=== PATIENT | female | born 1955 | race Two or more races ===

== ENCOUNTER 2024-07-31 16:06 | Emergency (ER) | payer BC, OTHER ==
[~2024-07-31] VITALS: Ht 162.6 cm; Wt 70.5 kg
[2024-07-31 17:16] LABS: Urine Bacteria MANY /hpf (None Seen); Urine Blood Negative /uL (Negative); Urine Clarity Clear (Clear); Urine Color Light-Yellow (Yellow); Urine Mucus FEW (None Seen); Urine Protein, UAD 1+ (Negative); Urine Specific Gravity 1.027 (1.001-1.035); Urine Squamous Epithelial Cell FEW /hpf (<5); Urine Urobilinogen Normal (Negative); Urine WBC 9 /HPF (0-5); Urine pH 5.5 (5.0-9.0)
--- NOTE | 2024-07-31 18:04 | ED.PDOC ---
GI ASSESSMENT HPI Comments 69 YEAR OLD FEMALE PRESENTS TO THE ED WITH A CHIEF COMPLAINT OF EPIGASTRIC PAIN ONSET LAST NIGHT (07/30/2024). PATIENT STATES SHE BEGAN EXPERIENCING EPIGASTRIC PAIN LAST NIGHT THAT WORSEN THIS MORNING WELL NAUSEA/VOMITING, CHILLS, FEVERS. PATIENT WAS DIAGNOSED WITH INTERNAL SHINGLES 5 MONTHS AGO, HAS CHRONIC DIFFUSED ABDOMINAL PAIN. PMHX GERD, INTERNAL SHINGLES. DENIES HEADACHE, CHEST PAIN, SHORTNESS OF BREATH, BLURRY VISION, DIARRHEA, CONSTIPATION. NO OTHER SYMPTOMS OR MODIFYING FACTORS PRESENT AT THIS TIME. Chief Complaint: Nausea/Vomiting Time Seen by MD: 17:51 Primary Care Provider: LUTHER Pope Notes: Medications, Allergies Allergies: Coded Allergies: NO KNOWN ALLERGIES (Unverified , 07/31/24) Information Source: Patient Mode of Arrival: Ambulatory Timing: Hours Duration: Since onset Prehospital treatment: None Quality: Aching, Burning Severity: Moderate Recent: None Recent Hx of: None Pain Location: Epigastric Modifying Factors: Nothing Associated sign and symptoms: Nausea, Vomiting, Abdominal Pain, Fever Past Medical History PAST MEDICAL HISTORY: GERD Past Medical History (Other): Internal shingles Surgical History: Appendectomy, Cholecystectomy, ASSIGNMENT DESK ASSISTANT History: No Pertinent ASSIGNMENT DESK ASSISTANT History Family History Family History: Reviewed,noncontributory to illness, No family hx of Cancer, No family hx of DM, No family hx of Heart crissy, No family hx of HTN, No family hx ofKidney crissy, No family hx of Liver crissy, No family hx of Lung crissy, No family hx of Stroke Social History Smoker: Non-Smoker Alcohol: Denies ETOH Use Drugs: Denies Drug Use Lives In: Home Constitutional: reports: chills, fever; denies: diaphoresis, fatigue, malaise, sweats, weakness, others EENTM: denies: blurred vision, double vision, ear bleeding, ear discharge, ear drainage, ear pain, ear ringing, eye pain, eye redness, hearing loss, mouth pain, mouth swelling, nasal discharge, nose bleeding, nose congestion, nose pain, photophobia, tearing, throat pain, throat swelling, voice changes, others Respiratory: denies: cough, hemoptysis, orthopnea, SOB at rest, shortness of breath, SOB with excertion, stridor, wheezing, others Cardiovascular: denies: chest pain, dizzy spells, diaphoresis, Dyspnea on exertion, edema, irregular heart beat, left arm pain, lightheadedness, palpitat ions, PND, syncope, others Gastrointestinal: reports: abdominal pain, nausea, vomiting; denies: abdomen distended, blood streaked bowels, constipated, diarrhea, dysphagia, difficulty swallowing, hematemesis, melena, poor appetite, poor fluid intake, rectal bleeding, rectal pain, others Genitourinary: denies: abnormal vagina bleeding, burning, dyspareunia, dysuria, flank pain, frequency, hematuria, incontinence, pain, , vagina discharge, urgency, others Neurological: denies: dizziness, fainting, headache, left sided numbness, left sided weakness, numbness, paresthesia, pre-existing deficit, right sided numbness, right sided weakness, seizure, speech problems, tingling, tremors, weakness, others Musculoskeletal: denies: back pain, gout, joint pain, joint swelling, muscle pain, muscle stiffness, neck pain, others Integumetry: denies: bruises, change in color, change in hair/nails, dryness, laceration, lesions, lumps, rash, wounds, others Allergic/Immunocompromised: denies: Difficulty Healing, Frequent Infections, Hives, Itching, others Hematologic/Lymphatic: denies: anemia, blood clots, easy bleeding, easy bruising, swollen glands, others Endocrine: denies: excessive hunger, excessive sweating, excessive thirst, excessive urination, flushing, intolerance to cold, intolerance to heat, unexplained weight gain, unexplained weight loss, others Psychiatric: denies: anxiety, bipolar disorder, depression, hopeless, panic disorder, schizophrenia, sleepless, suicidal, others All Other Systems: Reviewed and Negative Physical Exam General Appearance: No Apparent Distress, Normal HEENT: Normal ENT Inspection, Pharynx Normal, TMs Normal Neck: Full Range of Motion, Non-Tender, Normal, Normal Inspection Respiratory: Chest Non-Tender, Lungs Clear, No Accessory Muscle Use, No Respiratory Distress, Normal Breath Sounds Cardiovascular: No Edema, No JVD, No Murmur, No Gallop, Normal Peripheral Pulses, Regular Rate/Rhythm Breast Exam: Deferred Gastrointestinal: Diffuse (TENDERNESS), No Organomegaly, No Pulsatile Mass, Normal Bowel Sounds, Tenderness (DIFFUSED ABDOMINAL ) Genitalia: Deferred Pelvic: Deferred Rectal: Deferred Extremities: No calf tenderness, Normal capillary refill, Normal inspection, Normal range of motion, Non-tender, No pedal edema Musculoskeletal : Apperance: Normal Neurologic: Alert, slab inspector II-XII nml as Tested, No Motor Deficits, Normal Affect, Normal Mood, No Sensory Deficits Cerebellar Function: Normal Reflexes: Normal Skin: Dry, Normal Color, Warm Lymphatic: No Adenopathy Was a procedure done? Was a procedure done?: No GI differential Dx Differential Diagnosis: Constipation, Diverticular disease, Gastroenteritis, Urinary Obstruction, UTI X-Ray, Labs, Meds, VS Vital Signs Date Time Temp Pulse Resp B/P (MAP) Pulse Ox O2 Delivery O2 Flow Rate FiO2 07/31/24 16:45 100.0 111 16 119/75 (90) 100 Lab Test 07/31/24 17:00 Range/Units Urine Color Light-yellow Yellow Urine Clarity Clear Clear Urine pH 5.5 5.0-9.0 Urine Specific [place] 1.027 1.001-1.035 Urine Protein 1+ H Negative Urine Ketones Trace Negative Urine Blood Negative Negative /uL Urine Nitrite 2+ H Negative Urine Bilirubin Negative Negative Urine Urobilinogen Normal Negative mg/dL Urine Leukocyte Esterase Negative Negative /uL Urine RBC 1 0 - 4 /hpf Urine Microscopic WBC 9 H 0-5 /HPF Urine Squamous Epithelial Cells Few <5 /hpf Urine Bacteria Many H None Seen /hpf Urine Mucus Few None Seen Urine Glucose 4+ H Normal mg/dL X-Ray, Labs, Meds, VS Comment IMAGING: X-RAYS AND CT SCANS WERE REVIEWED AND INTERPRETED BY THIS PROVIDER, IMAGING SHOWS NO FRACTURES AND NO PATHOLOGICAL DISEASE. PENDING RADIOLOGY REVIEW. LABORATORY: LABS REVIEWED AND INTERPRETED BY THIS PROVIDER. URINALYSIS SHOWS POSITIVE NITRITES PATIENT HAS PRIOR MEDICAL VISITS REVIEWED. MED RECONCILIATION PERFORMED VITAL SIGNS REVIEWED Time of 1ST Reevaluation: 18:21 Reevaluation 1ST: Unchanged Patient Education/Counseling: Diagnosis, Treatment, Prognosis, Need For Follow Up (PATIENT ADVISED TO FOLLOW-UP IN THE EMERGENCY ROOM IN THE NEXT 24 TO 48 HOURS IF SYMPTOMS DO NOT IMPROVE. ADVISED FOLLOW-UP WITH PCP IN THE NEXT 3 TO 5 DAYS. PATIENT VERBALIZED UNDERSTANDING. ) Family Education/Counseling: No Family Present Departure 1 Departure Time of Disposition: 18:11 Impression: Primary Impression: Urinary tract infection Qualified Codes: N30.01 - Acute cystitis with hematuria Disposition: HOME / SELF CARE / HOMELESS Condition: Fair e-Prescriptions Ondansetron HCl (Ondansetron) 4 Mg Tab 4 MG PO TID PRN, #15 TAB Prov: PEE RIVER 07/31/24 Nitrofurantoin Monohydrate Mac (Macrobid) 100 Mg Cap 100 MG PO BID for 7 Days, #14 CAP Prov: PEE RIVER 07/31/24 Discharged With: Self Critical Care Note Critical Care Time?: No Stability Stability form required: No Heart Score Heart Score: Heart Score Response (Comments) Value History N/A 0 EKG N/A 0 Age N/A 0 Risk Factors N/A 0 Troponin N/A 0 Total 0 I personally scribed for PEE RIVER ([email or web address]) on 07/31/24 at 18:04. Electronically submitted by Gloria Murguia ([email or web address]). PEE RIVER Jul 31, 2024 18:04
[2024-07-31] MEDS ORDERED: ONDA-155 PO (18:12)
[2024-07-31] MEDS ORDERED: NITR-87 PO (18:12)
[2024-07-31 18:20] VITALS: BP 115/60; PULSE 114; RESP 18; TEMP 98; O2SAT 97
== END 2024-07-31 18:22 | disposition home or self-care (01) ==
LOC: ER 16:06
DX: N39.0 Urinary tract infection, site not specified (principal); K21.9 Gastro-esophageal reflux disease without esophagitis; Z90.49 Acquired absence of other specified parts of digestive tract; Z98.890 Other specified postprocedural states
CPT/HCPCS: 81001

== ENCOUNTER 2025-05-08 09:17 | Inpatient (IN) | payer BC, OTHER ==
[~2025-05-08] VITALS: Ht 165.1 cm; Wt 79.0 kg
[~2025-05-08 09:17] MED LIST: NITR-87 PO; ONDA-155 PO
--- NOTE | 2025-05-08 09:41 | ECG ---
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
[2025-05-08 11:32] LABS: Alanine Aminotransferase 20 U/L (7-40); Anion Gap 10 (5-15); BUN/Creatinine Ratio 18.5 (10.0-20.0); Blood Urea Nitrogen 15 mg/dL (9-23); Calcium 9.1 mg/dL (8.7-10.4); Carbon Dioxide 25 mmol/L (20-31); Chloride 106 mmol/L (98-107); Hematocrit 27.6 % (36.0-46.0); Hemoglobin 8.2 g/dL (12.2-16.2); Mean Corpuscular Hemoglobin 19.0 pg (28.0-32.0); Mean Corpuscular Volume 63.7 fL (80.0-100.0); Nucleated Red Blood Cells % 0.2 %; Potassium 3.7 mmol/L (3.5-5.1); Sodium 141 mmol/L (136-145); Total Protein 7.5 g/dL (5.7-8.2)
[2025-05-08 11:33] LABS: Albumin 4.1 g/dL (3.2-4.8); Bilirubin, Direct 0.2 mg/dL (<0.3); Bilirubin, Total 0.7 mg/dL (0.2-1.0)
[2025-05-08 11:35] LABS: Alkaline Phosphatase 156 U/L (46-116); Glucose 164 mg/dL (74-106)
--- NOTE | 2025-05-08 11:53 | DVH ---
CLINICAL HISTORY: abd distension TECHNIQUE: CT of the abdomen and pelvis was performed without IV contrast. This exam was performed according to our departmental dose optimization program. Up-to-date CT equipment and radiation dose reduction techniques are utilized as appropriate. CTDI 15 DLP 802 COMPARISON: None FINDINGS: Abdomen/Pelvis: The adrenal glands, kidneys, pancreas, bladder, and uterus are unremarkable. The liver has a cirrhotic morphology with nodular contour. The spleen is moderately enlarged, measuring 15.7 cm in long axis. The gallbladder is absent. The abdominal aorta is normal in course and caliber. There are mild aortic atherosclerotic calcifications. There is no free intraperitoneal air. Is small amount of free fluid in the peritoneal cavity. There is no enlarged abdominal pelvic lymph node. There is no small bowel wall thickening or dilatation. There is moderate ascending colon wall thickening. Other: The imaged lower thorax demonstrates aortic valvular calcifications. There is minimal interstitial lung edema in both lung bases. No acute osseous abnormality is evident. IMPRESSION: Cirrhosis with moderate splenomegaly and small amount of ascites. Moderate ascending colon wall thickening, favor portal colopathy. Aortic valvular calcifications. Mild interstitial lung edema.
[2025-05-08 12:21] LABS: Anisocytosis Slight
[2025-05-08 12:22] LABS: Ovalocytes FEW
[2025-05-08 12:42] LABS: Urine Protein, UAD 1+ (Negative)
--- NOTE | 2025-05-08 13:43 | ED.PDOC ---
GI ASSESSMENT HPI Comments 69 y/o F, with PMHx of HTN, DM, and GERD presents to the ED for CC of abdominal pain. Patient states, she has been experiencing diffuse abdominal pain with associated abdominal distension and nausea [id number]. Upon arrival to the ED, patient is hypertensive with a blood pressure of 192/108mmHg; endorses taking prescribed Lisinopril x30min CLOTH OPENER HAND. Patient denies vomiting, constipation, diarrhea, melena, or fever. No other symptoms or modifying factors are present at this time. Chief Complaint: Abdominal Pain Time Seen by MD: 10:00 Primary Care Provider: LUTHER Reviewed Notes: Nurses Notes, Medications, Allergies Allergies: Coded Allergies: Nitrofurantoin (Verified Allergy, Severe, 05/08/25) n/v and sob Home Meds Active Scripts Ondansetron HCl (Ondansetron) 4 Mg Tab, 4 MG PO TID PRN, #15 TAB Prov:PEE FRIAS DIAMOND EXPERT 07/31/24 Nitrofurantoin Monohydrate Mac (Macrobid) 100 Mg Cap, 100 MG PO BID for 7 Days, #14 CAP Prov:PEE FRIAS DIAMOND EXPERT 07/31/24 Information Source: Patient Mode of Arrival: Ambulatory Timing: Weeks Duration: Since onset Prehospital treatment: None Severity: Moderate Recent: None Recent Hx of: None Pain Location: Diffuse Modifying Factors: Nothing Associated sign and symptoms: Nausea, Abdominal Pain Past Medical History PAST MEDICAL HISTORY: DM, GERD, HTN Surgical History: Appendectomy, Cholecystectomy, CIRCULATION CLERK History: No Pertinent CIRCULATION CLERK History Family History Family History: Reviewed,noncontributory to illness, No family hx of Cancer, No family hx of DM, No family hx of Heart crissy, No family hx of HTN, No family hx ofKidney crissy, No family hx of Liver crissy, No family hx of Lung crissy, No family hx of Stroke Social History Smoker: Non-Smoker Alcohol: Denies ETOH Use Drugs: Denies Drug Use Lives In: Home Constitutional: denies: chills, diaphoresis, fatigue, fever, malaise, sweats, weakness, others EENTM: denies: blurred vision, double vision, ear bleeding, ear discharge, ear drainage, ear pain, ear ringing, eye pain, eye redness, hearing loss, mouth pain, mouth swelling, nasal discharge, nose bleeding, nose congestion, nose pain, photophobia, tearing, throat pain, throat swelling, voice changes, others Respiratory: denies: cough, hemoptysis, orthopnea, SOB at rest, shortness of breath, SOB with excertion, stridor, wheezing, others Cardiovascular: denies: chest pain, dizzy spells, diaphoresis, Dyspnea on exertion, edema, irregular heart beat, left arm pain, lightheadedness, palpitations, PND, syncope, others Gastrointestinal: reports: abdomen distended, abdominal pain, nausea; denies: blood streaked bowels, constipated, diarrhea, dysphagia, difficulty swallowing, hematemesis, melena, poor appetite, poor fluid intake, rectal bleeding, rectal pain, vomiting, others Genitourinary: denies: abnormal vagina bleeding, burning, dyspareunia, dysuria, flank pain, frequency, hematuria, incontinence, pain, , vagina discharge, urgency, others Neurological: denies: dizziness, fainting, headache, left sided numbness, left sided weakness, numbness, paresthesia, pre-existing deficit, right sided numbness, right sided weakness, seizure, speech problems, tingling, tremors, weakness, others Musculoskeletal: denies: back pain, gout, joint pain, joint swelling, muscle pain, muscle stiffness, neck pain, others Integumetry: denies: bruises, change in color, change in hair/nails, dryness, laceration, lesions, lumps, rash, wounds, others Allergic/Immunocompromised: denies: Difficulty Healing, Frequent Infections, Hives, Itching, others Hematologic/Lymphatic: denies: anemia, blood clots, easy bleeding, easy bruising, swollen glands, others Endocrine: denies: excessive hunger, excessive sweating, excessive thirst, excessive urination, flushing, intolerance to cold, intolerance to heat, unexp lained weight gain, unexplained weight loss, others Psychiatric: denies: anxiety, bipolar disorder, depression, hopeless, panic disorder, schizophrenia, sleepless, suicidal, others All Other Systems: Reviewed and Negative Physical Exam General Appearance: No Apparent Distress, Normal HEENT: Normal ENT Inspection, Pharynx Normal, TMs Normal Neck: Full Range of Motion, Non-Tender, Normal, Normal Inspection Respiratory: Chest Non-Tender, Lungs Clear, No Accessory Muscle Use, No Respiratory Distress, Normal Breath Sounds Cardiovascular: No Edema, No JVD, No Murmur, No Gallop, Normal Peripheral Pulse s, Regular Rate/Rhythm Breast Exam: Deferred Gastrointestinal: No Organomegaly, No Pulsatile Mass, Normal Bowel Sounds, Soft, Other (Abdominal distention with diffuse abdominal tenderness to palpation) Genitalia: Deferred Pelvic: Deferred Rectal: Deferred Extremities: No calf tenderness, Normal capillary refill, Normal inspection, Normal range of motion, Non-tender, No pedal edema Musculoskeletal : Apperance: Normal Neurologic: Alert, 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 Was a procedure done?: No GI differential Dx Differential Diagnosis: Diverticular disease, Gastritis/PUD, Gastroenteritis, Inflammatory BD, Bacterial, Viral X-Ray, Labs, Meds, VS Vital Signs Date Time Temp Pulse Resp B/P (MAP) Pulse Ox O2 Delivery O2 Flow Rate FiO2 05/08/25 12:29 97.7 84 16 159/89 (112) 98 97.7 05/08/25 10:07 98.2 82 16 185/106 (132) 98 98.2 05/08/25 09:27 84 05/08/25 09:18 97.6 86 18 192/108 95 97.6 Lab Test 05/08/25 11:55 05/08/25 11:15 05/08/25 11:06 05/08/25 09:31 Range/Units Troponin I High Sensitivity 14 11 </=34 ng/L Anti-Nuclear Antibody Screen Pending Urine Color Colorless Yellow Urine Clarity Clear Clear Urine pH 6.0 5.0-9.0 Urine Specific [place] 1.012 1.001-1.035 Urine Protein 1+ H Negative Urine Ketones Negative Negative Urine Blood Trace H Negative /uL Urine Nitrite Negative Negative Urine Bilirubin Negative Negative Urine Urobilinogen Normal Negative mg/dL Urine Leukocyte Esterase Negative Negative /uL Urine RBC 2 0 - 4 /hpf Urine Microscopic WBC < 1 0-5 /HPF Urine Squamous Epithelial Cells Few <5 /hpf Urine Bacteria Few H None Seen /hpf Urine Glucose 4+ H Normal mg/dL White Blood Count 3.4 L 4.4-10.8 10^3/uL Red Blood Count 4.34 4.0-5.20 10^6/uL Hemoglobin 8.2 L 12.2-16.2 g/dL Hematocrit 27.6 L 36.0-46.0 % Mean Corpuscular Volume 63.7 L 80.0-100.0 fL Mean Corpuscular Hemoglobin 19.0 L 28.0-32.0 pg Mean Corpuscular Hemoglobin Concent 29.7 L 32.0-36.0 g/dL Red Cell Distribution Width 20.4 H 11.8-14.3 % Platelet Count 127 L 140-450 10^3/uL Mean Platelet Volume 8.1 6.9-10.8 fL Neutrophils (%) (Auto) 75.4 37.0-80.0 % Lymphocytes (%) (Auto) 15.5 10.0-50.0 % Monocytes (%) (Auto) 6.4 0.0-12.0 % Eosinophils (%) (Auto) 1.6 0.0-7.0 % Basophils (%) (Auto) 1.1 0.0-2.0 % Neutrophils # (Auto) 2.6 1.6-8.6 10 ^3/uL Lymphocytes # (Auto) 0.5 0.4-5.4 10 ^3/uL Monocytes # (Auto) 0.2 0-1.3 10 ^3/uL Eosinophils # (Auto) 0.1 0-0.8 10 ^3/uL Basophils # (Auto) 0 0-0.2 10 ^3/uL Nucleated Red Blood Cells 0.2 % Platelet Estimate Decreased Hypochromasia (manual) Moderate Anisocytosis (manual) Slight Microcytosis Moderate Ovalocytes Few Sodium Level 141 136-145 mmol/L Potassium Level 3.7 3.5-5.1 mmol/L Chloride Level 106 98-107 mmol/L Carbon Dioxide Level 25 20-31 mmol/L Anion Gap 10 5-15 Blood Urea Nitrogen 15 9-23 mg/dL Creatinine 0.81 0.550-1.02 mg/dL Glomerular Filtration Rate Calc 79 >90 mL/min BUN/Creatinine Ratio 18.5 10.0-20.0 Serum Glucose 164 H 74-106 mg/dL Calcium Level 9.1 8.7-10.4 mg/dL Iron Level 21 L 50-170 ug/dL Total Iron Binding Capacity 379 250-425 ug/dL Percent Iron Saturation 5.5 L 15-50 % Ferritin 6.8 L 10-291 ng/mL Total Bilirubin 0.7 0.2-1.0 mg/dL Direct Bilirubin 0.2 <0.3 mg/dL Aspartate Amino Transferase (AST) 30 13-40 U/L Alanine Aminotransferase (ALT) 20 7-40 U/L Alkaline Phosphatase 156 H 46-116 U/L B-Type Natriuretic Peptide 232.07 0-100 pg/mL Total Protein 7.5 5.7-8.2 g/dL Albumin 4.1 3.2-4.8 g/dL Lipase 65 H 12-53 U/L Hepatitis A Antibody Total Pending Hepatitis B Surface Antigen Pending Hepatitis B Surface Antibody Pending Hepatitis B Core Total Antibody Pending Hepatitis C Antibody Pending POC Glucose 194 H 70-106 mg/dl X-Ray, Labs, Meds, VS Comment 69-year-old female with a extensive medical history notably history of cirrhosis here today with diffuse abdominal pain. Vital signs stable, afebrile. Lab work overall reassuring without evidence of significant acute abnormalities. CT scan of the abdomen without evidence of emergent surgical pathology. Plan made to admit the patient for further evaluation of her abdominal pain and diuresis. Images Reviewed?: Images reviewed and evaluated by me Time of 1ST Reevaluation: 10:30 Reevaluation 1ST: Unchanged Patient Education/Counseling: Diagnosis, Treatment Family Education/Counseling: No Family Present SEPSIS Sepsis Screen Date sepsis recognized/suspect: May 08, 2025 Time Sepsis recognized/suspect: 919 Recent Procedure: No On Antibiotic Therapy: No Respiratory Rate >20: No Heart Rate >90: No Temp<36 C (96.8 F) or >38.3 C: No SBP <90 or MAP <65 mmHG: No New Acute Mental Status Change: No Is the patient on CPAP, BIPAP,: No Physician Orders Ct Ab Pel Wo Con-No Oral Or Iv (05/08/25 10:58) Vital Signs Date Time Temp Pulse Resp B/P (MAP) Pulse Ox O2 Delivery O2 Flow Rate FiO2 05/08/25 12:29 97.7 84 16 159/89 (112) 98 97.7 05/08/25 10:07 98.2 82 16 185/106 (132) 98 98.2 05/08/25 09:27 84 05/08/25 09:18 97.6 86 18 192/108 95 97.6 Laboratory Tests Test 05/08/25 11:06 White Blood Count 3.4 10^3/uL (4.4-10.8) L Departure 1 Departure Time of Disposition: 19:34 Impression: Primary Impression: Abdominal pain Additional Impressions: History of cirrhosis Volume overload Ascites Disposition: ADMITTED INPATIENT Admit to: Tele Condition: Guarded Critical Care Note Critical Care Time?: Yes (30 min-critical care time only) Stability Stability form required: No Heart Score Heart Score: Heart Score Response (Comments) Value History N/A 0 EKG N/A 0 Age N/A 0 Risk Factors N/A 0 Troponin N/A 0 Total 0 I personally scribed for VINAY CERDA MD ([email or web address]) on 05/08/25 at 13:43. Electronically submitted by Gilda Caceres ([email or web address]). I personally scribed for VINAY CERDA MD ([email or web address]) on 05/08/25 at 13:45. El ectronically submitted by Gilda Caceres ([email or web address]). I personally scribed for VINAY CERDA MD ([email or web address]) on 05/08/25 at 13:48. Elec tronically submitted by Gilda Caceres ([email or web address]). VINAY CERDA MD May 08, 2025 13:43
[2025-05-08] MEDS ORDERED: DEXTROSE (50%) 50ML SYRG IV PRN (13:45)
[2025-05-08] MEDS ORDERED: ACETAMINOPHEN 325 MG TAB PO PRN (13:45)
--- NOTE | 2025-05-08 13:51 | DVHHP2 ---
History of Present Illness History of Present Illness This is a 69-year-old female with a past medical history of diabetes, HERRON, gastritis, sinusitis, hypertension, and a prior episode of shingles who presents with two weeks of generalized abdominal pain that begins in the lower abdomen and then spreads diffusely. The pain improves after defecation, and she reports constipation with only a small bowel movement today. She mentions subjective fever without documented temperature and a mouth sore. She lives in [facility] and is currently visiting her son. On arrival, blood pressure was 192/108, now improved to 159/89. No fevers, heart rate stable. Exam shows a distended and tender abdomen, especially in the lower region. Normal EKG PMHx Diabetes, HERRON, gastritis, sinusitis, hypertension, prior shingles. PSHx Cholecystectomy, appendectomy, . Social History Lives in [facility], here visiting her son, drinks socially, no smoking or drug use reported. ROS Positive for abdominal pain, constipation, subjective fever, and oral sore. All other systems reviewed and negative. Review of Systems Allergies: Coded Allergies: Nitrofurantoin (Verified Allergy, Severe, 05/08/25) n/v and sob Medications Current Medications Medications Dose Ordered Sig/Jeffrey Route Start Time Stop Time Status Last Admin Dose Admin Furosemide 40 mg BIDD IV 05/08/25 18:00 UNV Spironolactone 100 mg DAILY PO 05/08/25 13:45 UNV Lisinopril 10 mg DAILY PO 05/09/25 10:00 UNV Diagnostic Test (Pha) 1 strip ACHS 05/08/25 17:00 UNV Insulin Human Regular ACHS SC 05/08/25 17:00 UNV Dextrose 50 ml UD PRN IV 05/08/25 13:45 UNV Acetaminophen 325 mg Q4HP PRN PO 05/08/25 13:45 UNV Exam Vital Signs Vital Signs Date Time Temp Pulse Resp B/P (MAP) Pulse Ox O2 Delivery O2 Flow Rate FiO2 05/08/25 12:29 97.7 84 16 159/89 (112) 98 97.7 Exam No acute distress, cardiopulmonary exam normal without crackles, wheezes, or murmurs. Abdomen distended and very tender in the lower quadrants, no fluid wave. No jaundice. Mild edema +1 in the extremities. Neurologically alert and oriented, no asterixis. Labs/Xrays Labs Test 05/08/25 11:55 05/08/25 11:15 05/08/25 11:06 05/08/25 09:31 Range/Units Troponin I High Sensitivity 14 </=34 ng/L Urine Color Colorless Yellow Urine Clarity Clear Clear Urine pH 6.0 5.0-9.0 Urine Specific [place] 1.012 1.001-1.035 Urine Protein 1+ H Negative Urine Ketones Negative Negative Urine Blood Trace H Negative /uL Urine Nitrite Negative Negative Urine Bilirubin Negative Negative Urine Urobilinogen Normal Negative mg/dL Urine Leukocyte Esterase Negative Negative /uL Urine RBC 2 0 - 4 /hpf Urine Microscopic WBC < 1 0-5 /HPF Urine Squamous Epithelial Cells Few <5 /hpf Urine Bacteria Few H None Seen /hpf Urine Glucose 4+ H Normal mg/dL White Blood Count 3.4 L 4.4-10.8 10^3/uL Red Blood Count 4.34 4.0-5.20 10^6/uL Hemoglobin 8.2 L 12.2-16.2 g/dL Hematocrit 27.6 L 36.0-46.0 % Mean Corpuscular Volume 63.7 L 80.0-100.0 fL Mean Corpuscular Hemoglobin 19.0 L 28.0-32.0 pg Mean Corpuscular Hemoglobin Concent 29.7 L 32.0-36.0 g/dL Red Cell Distribution Width 20.4 H 11.8-14.3 % Platelet Count 127 L 140-450 10^3/uL Mean Platelet Volume 8.1 6.9-10.8 fL Neutrophils (%) (Auto) 75.4 37.0-80.0 % Lymphocytes (%) (Auto) 15.5 10.0-50.0 % Monocytes (%) (Auto) 6.4 0.0-12.0 % Eosinophils (%) (Auto) 1.6 0.0-7.0 % Basophils (%) (Auto) 1.1 0.0-2.0 % Neutrophils # (Auto) 2.6 1.6-8.6 10 ^3/uL Lymphocytes # (Auto) 0.5 0.4-5.4 10 ^3/uL Monocytes # (Auto) 0.2 0-1.3 10 ^3/uL Eosinophils # (Auto) 0.1 0-0.8 10 ^3/uL Basophils # (Auto) 0 0-0.2 10 ^3/uL Nucleated Red Blood Cells 0.2 % Platelet Estimate Decreased Hypochromasia (manual) Moderate Anisocytosis (manual) Slight Microcytosis Moderate Ovalocytes Few Sodium Level 141 136-145 mmol/L Potassium Level 3.7 3.5-5.1 mmol/L Chloride Level 106 98-107 mmol/L Carbon Dioxide Level 25 20-31 mmol/L Anion Gap 10 5-15 Blood Urea Nitrogen 15 9-23 mg/dL Creatinine 0.81 0.550-1.02 mg/dL Glomerular Filtration Rate Calc 79 >90 mL/min BUN/Creatinine Ratio 18.5 10.0-20.0 Serum Glucose 164 H 74-106 mg/dL Calcium Level 9.1 8.7-10.4 mg/dL Total Bilirubin 0.7 0.2-1.0 mg/dL Direct Bilirubin 0.2 <0.3 mg/dL Aspartate Amino Transferase (AST) 30 13-40 U/L Alanine Aminotransferase (ALT) 20 7-40 U/L Alkaline Phosphatase 156 H 46-116 U/L B-Type Natriuretic Peptide 232.07 0-100 pg/mL Total Protein 7.5 5.7-8.2 g/dL Albumin 4.1 3.2-4.8 g/dL Lipase 65 H 12-53 U/L POC Glucose 194 H 70-106 mg/dl SEPSIS Sepsis Screen Date sepsis recognized/suspect: May 08, 2025 Time Sepsis recognized/suspect: 919 Recent Procedure: No On Antibiotic Therapy: No Respiratory Rate >20: No Heart Rate >90: No Temp<36 C (96.8 F) or >38.3 C: No SBP <90 or MAP <65 mmHG: No New Acute Mental Status Change: No Is the patient on CPAP, BIPAP,: No Physician Orders Ct Ab Pel Wo Con-No Oral Or Iv (05/08/25 10:58) Troponin-I Hs (05/08/25 13:58) Admit (05/08/25 13:43) Code Status (05/08/25 13:43) Vital Signs .PER UNIT PROTOCOL (05/08/25 13:43) Review Orders With Adm. (05/08/25 13:43) Consistent Carb([facility] [place])Diabetes (05/08/25 Dinner) Notify Md Of Changes From Base (05/08/25 13:43) Advance Directive (05/08/25 13:43) Echo 2d Mode Cardiac Dop (05/08/25 13:43) Patient Condition (05/08/25 13:43) Allergies (05/08/25 13:43) Oxygen By Nasal Cannula (05/08/25 13:43) Stat Ekg For Chest Pain (05/08/25 13:43) Notify Md Of Changes From Base (05/08/25 13:43) Plant Cytologist For 24 Hours (05/08/25 13:43) Emergency Dysrhythmia Protocol (05/08/25 13:43) Rhythm Strips Once Every Shift (05/08/25 13:43) Furosemide Injection (Lasix Injection) (05/08/25 18:00) Spironolactone (Aldactone) (05/08/25 13:45) Lisinopril Tablet (Zestril Tablet) (05/09/25 10:00) Glucose Blood (Accu-Chek Comfort Curve T (05/08/25 17:00) Insulin R (Human) (Insulin R) (05/08/25 17:00) Dextrose 50% Syringe (05/08/25 13:45) Acetaminophen Tablet (Tylenol Tablet) (05/08/25 13:45) Vital Signs Date Time Temp Pulse Resp B/P (MAP) Pulse Ox O2 Delivery O2 Flow Rate FiO2 05/08/25 12:29 97.7 84 16 159/89 (112) 98 97.7 05/08/25 10:07 98.2 82 16 185/106 (132) 98 98.2 05/08/25 09:27 84 05/08/25 09:18 97.6 86 18 192/108 95 97.6 Laboratory Tests Test 05/08/25 11:06 White Blood Count 3.4 10^3/uL (4.4-10.8) L Assessment/Plan Assessment/Plan # Acute intractable abdominal pain secondary to cirrhosis Pain likely reflects worsening portal hypertension and abdominal wall tension from mild ascites in the setting of known cirrhosis. Will manage with diuretics, monitor abdominal exam, and trend CMP; no indication for paracentesis at this time given minimal fluid. # HERRON cirrhosis Imaging confirms cirrhosis, splenomegaly, and mild ascites consistent with chronic portal hypertension. start spironolactone and furosemide, monitor i ntake/output, daily weights, per hospital course, consider GI consult # Ascites Mild ascites noted on CT; patient stable without peritonitis signs. Will initiate diuretics (furosemide and spironolactone) and low-sodium diet; reassess fluid volume and consider paracentesis only if symptoms worsen or fluid increases. # Microcytic anemia Hemoglobin 8.2 with microcytosis is concerning for iron deficiency in the setting of chronic liver disease and possible malabsorption. Order iron studies and ferritin; consider IV iron depending on results and clinical course. #Hypersplenism #Thrombocytopenia Due to cirrhosis # Type 2 diabetes mellitus Glycemic control needs maintenance during hospitalization. Use insulin sliding scale and hold oral agents for now. # Hypertension Initial severe elevation improved; likely multifactorial including pain and volume status. Resume nadolol at low dose and monitor blood pressure closely. # Gastritis history Protonix IV Case discussed with Dr Reeder Full code Plan discussed with: Patient, Other (rn) My Orders Orders - HOLLIS KINSEY Procedure Category Date Status Time Admit ADMIT 05/08/25 Transmitted 13:43 Code Status CODE 05/08/25 Transmitted 13:43 Vital Signs [facility] 05/08/25 In Process 13:43 Review Orders With [facility] 05/08/25 In Process Adm. 13:43 Consistent DIET 05/08/25 Transmitted Carb(Ccho)Diabetes Dinner Notify Of Changes [facility] 05/08/25 In Process From Base 13:43 Advance Directive [facility] 05/08/25 In Process 13:43 Echo 2d Mode Cardiac US 05/08/25 Logged DOP 13:43 Patient Condition ORDERS 05/08/25 Transmitted 13:43 Allergies [facility] 05/08/25 In Process 13:43 Oxygen By Nasal RT 05/08/25 Transmitted Cannula 13:43 Stat Ekg For Chest [facility] 05/08/25 In Process Pain 13:43 Notify Of Changes [facility] 05/08/25 In Process From Base 13:43 Plant Cytologist For [facility] 05/08/25 In Process 24 Hours 13:43 Emergency Dysrhythmia [facility] 05/08/25 In Process Protocol 13:43 Rhythm Strips Once [facility] 05/08/25 In Process Every Shift 13:43 Furosemide Injection PHA 05/08/25 Logged (Lasix Injection) 18:00 Spironolactone [facility] 05/08/25 Logged (Aldactone) 13:45 Lisinopril Tablet PHA 05/09/25 Logged (Zestril Tablet) 10:00 Glucose Blood PHA 05/08/25 Logged (Accu-Chek Comfort 17:00 Insulin R (Human) PHA 05/08/25 Logged (Insulin R) 17:00 Dextrose 50% Syringe PHA 05/08/25 Logged 13:45 Acetaminophen Tablet PHA 05/08/25 Logged (Tylenol Tablet) 13:45 Date of Service: May 08, 2025 Billing Provider: MICHAEL REEDER MD Common Visit Codes: [id number] INP/OBS CARE (HIGH) Secondary Visit Codes: [id number] CARE PLAN 30 MINUTES HOLLIS KINSEY RESIDENT May 08, 2025 13:51
[2025-05-08] MEDS: SPIRONOLACTONE 25 MG TAB PO SCH (14:44)
[2025-05-08 15:04] LABS: Total Iron Binding Capacity 379.0 ug/dL (250-425)
[2025-05-08 15:05] LABS: Iron 21.0 ug/dL (50-170)
[2025-05-08] MEDS: ACCU-CHEK COMFORT CURVE STRIP VI SCH (20:22)
[2025-05-08] MEDS: IRON SUCROSE COMPLEX 110 ML IV SCH (20:59)
[2025-05-08] MEDS: FUROSEMIDE 40 MG/4 ML VIAL IV SCH (21:08)
[2025-05-08] MEDS: InsuLIN REG 1unit/0.01ml Soln (100units/ml) SC SCH (21:09)
[2025-05-08] MEDS: hydrALAZINE HCL 20 MG/ML VL IV ONE (22:06)
[2025-05-08] MEDS: KETOROLAC TROMETH 30 MG/ML 1ML VIAL IV ONE (22:06)
[2025-05-09 05:26] VITALS: PULSE 77; RESP 20; O2SAT 97
[2025-05-09 05:32] LABS: Hematocrit 30.5 % (36.0-46.0); Hemoglobin 9.1 g/dL (12.2-16.2); Mean Corpuscular Hemoglobin 19.0 pg (28.0-32.0); Mean Corpuscular Volume 63.3 fL (80.0-100.0); Nucleated Red Blood Cells % 0.2 %
[2025-05-09 05:33] LABS: Alanine Aminotransferase 22 U/L (7-40); Albumin 4.3 g/dL (3.2-4.8); Anion Gap 10 (5-15); BUN/Creatinine Ratio 15.0 (10.0-20.0); Blood Urea Nitrogen 15 mg/dL (9-23); Calcium 9.3 mg/dL (8.7-10.4); Carbon Dioxide 27 mmol/L (20-31); Chloride 103 mmol/L (98-107); Magnesium 2.0 mg/dL (1.6-2.6); Sodium 140 mmol/L (136-145); Total Protein 8.0 g/dL (5.7-8.2)
[2025-05-09 05:34] LABS: Bilirubin, Total 0.6 mg/dL (0.2-1.0)
[2025-05-09 05:36] LABS: Alkaline Phosphatase 161 U/L (46-116); Cholesterol 206 mg/dL (< 200); Glucose 213 mg/dL (74-106); HDL Cholesterol 84 mg/dL (40-59); Potassium 3.2 mmol/L (3.5-5.1); Triglycerides 163 mg/dL (< 150)
[2025-05-09 05:39] LABS: INR 1.08 (0.9-1.15); Partial Thromboplastin Time 27.1 SEC (24.5-34.5); Prothrombin Time 11.4 sec (9.3-11.8)
[2025-05-09] MEDS: POTASSIUM EFFERVESENT TAB 25 MEQ PO ONE ×2 (06:11→16:27)
[2025-05-09] MEDS: hydrALAZINE HCL 20 MG/ML VL IV ONE (06:11)
[2025-05-09] MEDS: HYDROcodone-ACET 5/325MG TAB PO ONE (06:11)
[2025-05-09] MEDS: LACTULOSE 20Gm/30ML SOLN PO SCH (10:00)
[2025-05-09] MEDS: LISINOPRIL 5 MG TAB PO SCH (10:00)
[2025-05-09] MEDS: PANTOPRAZOLE 40 MG TAB PO SCH (11:02)
[2025-05-09 11:05] LABS: Hepatitis A Total Antibody Positive (Negative); Hepatitis B Surface Antigen Negative (Negative); Hepatitis C Antibody Negative (Negative)
[2025-05-09 11:28] VITALS: PULSE 82; RESP 20; O2SAT 98
--- NOTE | 2025-05-09 12:56 | DVHPNRES ---
Progress Note Date Seen: May 09, 2025 Resident Creating Document: SABINE ADLER RESIDENT Medical Necessity Reason Pt with a Central, PICC or Fol: No Subjective Review of Systems This is a 69-year-old female with a past medical history of diabetes type 2, use of liver, HERRON, gastritis, sinusitis, hypertension, history of esophageal varices, diverticulosis and a prior episode of shingles who presents with two weeks of generalized abdominal pain that begins in the lower abdomen and then spreads diffusely. Pain was gradual onset, 10/10 initially, diffuse, crampy in nature, intermittent, Pain increases with the eating and mproves after defecation, and she reports constipation with only a small bowel movement today. She mentions subjective fever without documented temperature and a mouth sore. Patient reported she had colonoscopy in 2020 and had esophageal varices and three-vessel required cauterization, also revealed had a colonoscopy finding was diverticulosis, no polyps as per patient. On arrival, blood pressure was 192/108, now improved to 159/89. Normal EKG. Lab workup revealed pancytopenia with WBC 3.4, hemoglobin 8.2, MCV 63.7, RDW 20.4, platelet 127, hypokalemia with a potassium 3.2, A1c 8.3, serum iron 21, ferritin 6.8, saturation 5.5, bilirubin/AST/ALT within normal limit, alkaline phosphatase 156, TSH 2.4. Hepatitis-A antibody positive, hepatitis BS antigen negative, hepatitis-B as antibody positive, hepatitis-B core antibody total positive, hepatitis-C antibody negative. CT abdomen and pelvis- Cirrhosis with moderate splenomegaly and small amount of ascites.Moderate ascending colon wall thickening, favor portal colopathy.Aortic valvular calcifications. Mild interstitial lung edema. PMHx-diabetes type 2, use of liver, HERRON, gastritis, sinusitis, hypertension, history of esophageal varices, diverticulosis PSHx-Cholecystectomy, appendectomy, . Social History-Lives in [facility], here visiting her son, drinks socially, no smoking or drug use reported. Lives with daughter ROS Cardiovascular- deny acute chest pain or shortness of breath or cough or palpitation Respiratory denies cough or short of breath or wheezing Gastrointestinal- abdominal pain, nausea Musculoskeletal-denies acute joint swelling or tenderness or redness Neurological- denies acute dysarthria, dysphagia, change in vision Psychiatry- denies depression or SI or HI Skin- denies acute rash or purpura Patient was seen today labs and chart reviewed Patient on Lasix and spironolactone Ordered lactulose for constipation, patient had bowel movement after the Replenish potassium Ordered repeat potassium level Objective vital signs Vital Sign Date Time Temp Pulse Resp B/P (MAP) Pulse Ox O2 Delivery O2 Flow Rate FiO2 05/09/25 12:00 75 05/09/25 11:28 98.8 20 126/58 (80) 98 98.8 05/09/25 11:28 Room Air* 0 21 Total Intake and Output 05/08/25 05/08/25 05/09/25 15:00 23:00 07:00 Intake Total 110 ml Balance 110 ml medications Current Medications Medications Dose Ordered Sig/Jeffrey Route Start Time Stop Time Status Last Admin Dose Admin Spironolactone 100 mg DAILY PO 05/08/25 13:45 05/09/25 10:00 100 MG Lisinopril 10 mg DAILY PO 05/09/25 10:00 05/09/25 10:00 10 MG Diagnostic Test (Pha) 1 strip ACHS 05/08/25 17:00 05/09/25 12:07 1 STRIP Insulin Human Regular ACHS SC 05/08/25 17:00 05/09/25 12:39 2 UNITS Dextrose 50 ml UD PRN IV 05/08/25 13:45 Acetaminophen 325 mg Q4HP PRN PO 05/08/25 13:45 Iron Sucrose 110 ml @ 110 mls/hr DAILY@1200 IV 05/08/25 16:30 05/12/25 16:29 05/09/25 12:33 110 MLS/HR Pantoprazole Sodium 40 mg BID@0600,1700 PO 05/09/25 08:45 05/09/25 11:02 40 MG Lactulose 30 ml BID PO 05/09/25 09:45 05/09/25 11:01 30 ML Furosemide 40 mg DAILY PO 05/10/25 10:00 Examination General examination- awake, alert, oriented HEENT- PEERLA, no acute nasal discharge Cardiovascular- S1-S2 audible, rate and rhythm regular, no murmur Respiratory- CTAB, no wheeze or rhonchi Gastrointestinal-mild abdominal distention, tenderness positive, bowel sound+. Nondistended Musculoskeletal-no acute joint swelling or tenderness or redness Lower extremity-trace leg edema Neurological- cranial nerves intact, no acute dysarthria or dysphagia Psychiatry- denies depression or SI or HI Skin- no acute rash or purpura laboratory and microbiology Laboratory Tests 05/09/25 04:43 Test 05/09/25 04:43 Range/Units Serum Glucose 213 H 74-106 mg/dL Problem List/Assessment/Plan Problem List/Assessment/Plan # intractable abdominal pain with nausea likely due to gastritis -continue pantoprazole as prescribed -continue sucralfate as prescribed # cirrhosis of liver with portal hypertension-history of esophageal varices cauterization # ascites likely due to above #HERRON # hypersplenism likely due to above # pancytopenia likely due to above - MELD score 07 -patient on Lasix and spironolactone -on lactulose -avoid dehydration and constipation # microcytic hypochromic anemia likely due to iron-deficiency anemia -patient on iron supplement # diabetes mellitus type 2 -patient on insulin sliding scale # hypertension -patient on lisinopril -monitor blood pressure # hypokalemia replenished -ordered repeat BMP # history of diverticulosis -avoid dehydration and constipation # vitamin-D deficiency -continue supplement as prescribed Goals of care, Code status Full code discussed with >15 minutes PUD prophylaxis: Pantoprazole DVT prophylaxis: SCD Plan discussed with Dr. Reeder , nursing staff, Total time spent on patient evaluation, chart review, assessment and plan, discussion discussion >35 minutes Plan discussed with: Patient, Other (RN) My Orders My Orders Orders - SABINE ADLER Procedure Category Date Status Time Stool Occult Blood LAB 05/09/25 Logged 08:32 Drug Screen LAB 05/09/25 Logged 08:39 Pantoprazole Tablet PHA 05/09/25 In Process (Protonix Tablet) 08:45 Lactulose Oral PHA 05/09/25 In Process 09:45 Furosemide Tablet PHA 05/10/25 In Process (Lasix Tablet) 10:00 Visit Coding STANDARD RES Billing Provider: MICHAEL REEDER MD Date of Service if different f: May 09, 2025 Common Visit Codes: [id number] INP/OBS CARE(HIGH) SABINE ADLER RESIDENT May 09, 2025 12:56 CHAZ SCHULZ RESIDENT May 09, 2025 22:52
[2025-05-09 17:00] VITALS: BP 161/76; PULSE 82; RESP 16; TEMP 97.9; O2SAT 99
[2025-05-09 18:03] LABS: Chloride 104 mmol/L (98-107); Potassium 3.7 mmol/L (3.5-5.1); Sodium 141 mmol/L (136-145)
[2025-05-09 18:04] LABS: Anion Gap 9 (5-15); Carbon Dioxide 28 mmol/L (20-31)
[2025-05-09 18:05] LABS: Calcium 8.7 mg/dL (8.7-10.4)
[2025-05-09 18:09] LABS: BUN/Creatinine Ratio 17.2 (10.0-20.0); Blood Urea Nitrogen 16 mg/dL (9-23)
[2025-05-09 18:15] LABS: Glucose 194 mg/dL (74-106)
[2025-05-09] MEDS: ERGOCALCIFEROL 50,000 UNIT(1.25MG) CAP PO SCH (18:49)
[2025-05-09 21:00] VITALS: BP 153/83; PULSE 83; RESP 19; TEMP 97.8; O2SAT 95
[2025-05-09] MEDS: MORPHINE SULFATE 4 MG/ML SYR/VIAL IV PRN (21:42)
[2025-05-10 01:00] VITALS: BP 114/55; PULSE 76; RESP 19; TEMP 97.5; O2SAT 94
[2025-05-10 05:00] VITALS: BP 121/70; PULSE 73; RESP 20; TEMP 97.4; O2SAT 95
[2025-05-10 07:42] LABS: Hematocrit 26.9 % (36.0-46.0); Hemoglobin 8.0 g/dL (12.2-16.2); Mean Corpuscular Hemoglobin 18.9 pg (28.0-32.0); Mean Corpuscular Volume 63.2 fL (80.0-100.0); Nucleated Red Blood Cells % 0.1 %
[2025-05-10 07:58] LABS: Alanine Aminotransferase 20 U/L (7-40); Albumin 3.3 g/dL (3.2-4.8); Anion Gap 10 (5-15); BUN/Creatinine Ratio 16.1 (10.0-20.0); Blood Urea Nitrogen 14 mg/dL (9-23); Carbon Dioxide 28 mmol/L (20-31); Chloride 105 mmol/L (98-107); Magnesium 2.0 mg/dL (1.6-2.6); Sodium 143 mmol/L (136-145); Total Protein 6.2 g/dL (5.7-8.2)
[2025-05-10 07:59] LABS: Bilirubin, Total 0.4 mg/dL (0.2-1.0)
[2025-05-10 08:09] LABS: Alkaline Phosphatase 126 U/L (46-116); Calcium 8.6 mg/dL (8.7-10.4); Glucose 154 mg/dL (74-106); Potassium 3.4 mmol/L (3.5-5.1)
[2025-05-10 09:00] VITALS: BP 150/89; PULSE 69; RESP 18; TEMP 98.4; O2SAT 96
[2025-05-10] MEDS: FERROUS SULFATE 300 MG/5 ML ORAL LIQ PO SCH (09:21)
[2025-05-10] MEDS: FUROSEMIDE 40 MG TAB PO SCH (09:22)
[2025-05-10] MEDS: POLYETHYLENE GLYCOL 17 GM PWDR PO ONE (10:24)
[2025-05-10] MEDS: METOCLOPRAMIDE HCL 5MG/ml INJ 2ml VIAL IV ONE (10:24)
[2025-05-10] MEDS: LACTULOSE 20Gm/30ML SOLN PO ONE (11:42)
[2025-05-10] MEDS: FLEET ENEMA(ADULT) 135 ML PR ONE (11:43)
--- NOTE | 2025-05-10 12:26 | DVHDSRES ---
Discharge Summary Date of Admission Resident Creating Document: SABINE ADLER RESIDENT May 08, 2025 at 13:43 Date of Discharge: May 10, 2025 Admitting Diagnosis Acute gastritis Cirrhosis of liver with a ascites Labs/Diagnostic Data: Laboratory Results Test 05/10/25 10:29 05/10/25 06:48 05/09/25 04:43 05/08/25 14:02 POC Glucose 270 mg/dl (70-106) White Blood Count 2.9 10^3/uL (4.4-10.8) Red Blood Count 4.25 10^6/uL (4.0-5.20) Hemoglobin 8.0 g/dL (12.2-16.2) Hematocrit 26.9 % (36.0-46.0) Mean Corpuscular Volume 63.2 fL (80.0-100.0) Mean Corpuscular Hemoglobin 18.9 pg (28.0-32.0) Mean Corpuscular Hemoglobin Concent 29.8 g/dL (32.0-36.0) Red Cell Distribution Width 20.0 % (11.8-14.3) Platelet Count 136 10^3/uL (140-450) Mean Platelet Volume 8.1 fL (6.9-10.8) Neutrophils (%) (Auto) 58.6 % (37.0-80.0) Lymphocytes (%) (Auto) 25.4 % (10.0-50.0) Monocytes (%) (Auto) 11.3 % (0.0-12.0) Eosinophils (%) (Auto) 3.2 % (0.0-7.0) Basophils (%) (Auto) 1.5 % (0.0-2.0) Neutrophils # (Auto) 1.7 10 ^3/uL (1.6-8.6) Lymphocytes # (Auto) 0.7 10 ^3/uL (0.4-5.4) Monocytes # (Auto) 0.3 10 ^3/uL (0-1.3) Eosinophils # (Auto) 0.1 10 ^3/uL (0-0.8) Basophils # (Auto) 0 10 ^3/uL (0-0.2) Nucleated Red Blood Cells 0.1 % Sodium Level 143 mmol/L (136-145) Potassium Level 3.4 mmol/L (3.5-5.1) Chloride Level 105 mmol/L (98-107) Carbon Dioxide Level 28 mmol/L (20-31) Anion Gap 10 (5-15) Blood Urea Nitrogen 14 mg/dL (9-23) Creatinine 0.87 mg/dL (0.550-1.02) Glomerular Filtration Rate Calc 73 mL/min (>90) BUN/Creatinine Ratio 16.1 (10.0-20.0) Serum Glucose 154 mg/dL (74-106) Calcium Level 8.6 mg/dL (8.7-10.4) Magnesium Level 2.0 mg/dL (1.6-2.6) Total Bilirubin 0.4 mg/dL (0.2-1.0) Aspartate Amino Transferase (AST) 31 U/L (13-40) Alanine Aminotransferase (ALT) 20 U/L (7-40) Alkaline Phosphatase 126 U/L (46-116) Ammonia 40 umol/L (11-32) Total Protein 6.2 g/dL (5.7-8.2) Albumin 3.3 g/dL (3.2-4.8) Prothrombin Time 11.4 sec (9.3-11.8) Prothrombin Time INR 1.08 (0.9-1.15) Activated Partial Thromboplast Time 27.1 SEC (24.5-34.5) Hemoglobin A1c 8.3 % A1C (<5.7) Phosphorus Level 3.6 mg/dL (2.4-5.1) Triglycerides Level 163 mg/dL (< 150) Cholesterol Level 206 mg/dL (< 200) LDL Cholesterol 89 mg/dL (< 100) HDL Cholesterol 84 mg/dL (40-59) Lipase 84 U/L (12-53) Vitamin B12 Level 1140 pg/mL (211-911) Vitamin D 25-Hydroxy 10.6 ng/mL (30.0-100) Thyroid Stimulating Hormone (TSH) 2.44 uIU/mL (0.55-4.78) Troponin I High Sensitivity 14 ng/L (</=34) Test 05/08/25 11:55 05/08/25 11:15 05/08/25 11:06 Anti-Nuclear Antibody Screen Negative (Negative) Urine Color Colorless (Yellow) Urine Clarity Clear (Clear) Urine pH 6.0 (5.0-9.0) Urine Specific [place] 1.012 (1.001-1.035) Urine Protein 1+ (Negative) Urine Ketones Negative (Negative) Urine Blood Trace /uL (Negative) Urine Nitrite Negative (Negative) Urine Bilirubin Negative (Negative) Urine Urobilinogen Normal mg/dL (Negative) Urine Leukocyte Esterase Negative /uL (Negative) Urine RBC 2 /hpf (0 - 4) Urine Microscopic WBC < 1 /HPF (0-5) Urine Squamous Epithelial Cells Few /hpf (<5) Urine Bacteria Few /hpf (None Seen) Urine Glucose 4+ mg/dL (Normal) Platelet Estimate Decreased Hypochromasia (manual) Moderate Anisocytosis (manual) Slight Microcytosis Moderate Ovalocytes Few Iron Level 21 ug/dL (50-170) Total Iron Binding Capacity 379 ug/dL (250-425) Percent Iron Saturation 5.5 % (15-50) Ferritin 6.8 ng/mL (10-291) Direct Bilirubin 0.2 mg/dL (<0.3) B-Type Natriuretic Peptide 232.07 pg/mL (0-100) Hepatitis A Antibody Total Positive (Negative) Hepatitis B Surface Antigen Negative (Negative) Hepatitis B Surface Antibody Positive (Negative) Hepatitis B Core Total Antibody Positive (Negative) Hepatitis C Antibody Negative (Negative) Other Laboratory Tests 05/10/25 06:48 Brief Hx & Hospital Course: This is a 69-year-old female with a past medical history of diabetes type 2, use of liver, HERRON, gastritis, sinusitis, hypertension, history of esophageal varices, diverticulosis and a prior episode of shingles who presents with two weeks of generalized abdominal pain that begins in the lower abdomen and then spreads diffusely. Pain was gradual onset, 10/10 initially, diffuse, crampy in nature, intermittent, Pain increases with the eating and mproves after defecation, and she reports constipation with only a small bowel movement today. She mentions subjective fever without documented temperature and a mouth sore. Patient reported she had colonoscopy in 2020 and had esophageal varices and three-vessel required cauterization, also revealed had a colonoscopy finding was diverticulosis, no polyps as per patient. On arrival, blood pressure was 192/108, now improved to 159/89. Normal EKG. Lab workup revealed pancytopenia with WBC 3.4, hemoglobin 8.2, MCV 63.7, RDW 20.4, platelet 127, hypokalemia with a potassium 3.2, A1c 8.3, serum iron 21, ferritin 6.8, saturation 5.5, bilirubin/AST/ALT within normal limit, alkaline phosphatase 156, TSH 2.4. Hepatitis-A antibody positive, hepatitis BS antigen negative, hepatitis-B as antibody positive, hepatitis-B core antibody total positive, hepatitis-C antibody negative. CT abdomen and pelvis- Cirrhosis with moderate splenomegaly and small amount of ascites.Moderate ascending colon wall thickening, favor portal colopathy.Aortic valvular calcifications. Mild interstitial lung edema. PMHx-diabetes type 2, use of liver, HERRON, gastritis, sinusitis, hypertension, history of esophageal varices, diverticulosis PSHx-Cholecystectomy, appendectomy, . Social History-L[facility] in [facility], here visiting her son, drinks socially, no smoking or drug use reported. Lives with daughter ROS Cardiovascular- deny acute chest pain or shortness of breath or cough or palpitation Respiratory denies cough or short of breath or wheezing Gastrointestinal- abdominal pain, nausea Musculoskeletal-denies acute joint swelling or tenderness or redness Neurological- denies acute dysarthria, dysphagia, change in vision Psychiatry- denies depression or SI or HI Skin- denies acute rash or purpura Patient was seen today labs and chart reviewed Patient on Lasix and spironolactone Ordered lactulose for constipation, patient had bowel movement after the Replenish potassium Ordered repeat potassium level Condition at Discharge: Stable Final Diagnosis/Problems List # intractable abdominal pain with nausea likely due to gastritis # cirrhosis of liver with portal hypertension-history of esophageal varices cauterization # ascites likely due to above #HERRON # hypersplenism likely due to above # pancytopenia likely due to above # microcytic hypochromic anemia likely due to iron-deficiency anemia # diabetes mellitus type 2 # hypertension # Hypokalemia replenished # history of diverticulosis # vitamin-D deficiency Discharge Disposition: Home Discharge Instruct/Medications Diet: Consistent carbohydrate, Cardiac 2g Na,low cholest Activity: No Restrictions, As Tolerated Follow Up/Referral: [facility] PCP GASTR[facility]OLOG[facility] Medications: ABOVE Scheduled Docusate Sodium (Colace), 1 CAP PO BID Ferrous Sulfate (Ferrous Sulfate), 325 MG PO DAILY Furosemide (Lasix), 1 TAB PO DAILY Nitrofurantoin Monohydrate Mac (Macrobid), 100 MG PO BID Pantoprazole Sodium Sesquihydr (Pantoprazole Sodium), 40 MG PO DAILY Spironolactone (Spironolactone), 2 TAB PO DAILY Sucralfate (Carafate), 1 GM PO BID Scheduled PRN Lactulose (Lactulose), 20 GM PO BID PRN Ondansetron HCl (Ondansetron), 4 MG PO TID PRN Discharge Statement: "Patient was advised to return to the ER or call 911 if any headaches, dizziness, shortness of breath, chest pain, abdominal pain, bleeding, fevers, or worsening of medical condition. Patient was counseled about treatment plan, medications, possible side effects, patientverbalized understanding. All questions were answered to the best of my ability. This discharge took greater then 30 minutes in planning, reviewing documentation, counseling the patient, and discussing with other team members." ASSESSMENT ASSESSMENT Assessment Visit Coding STANDARD RES Billing Provider: MICHAEL MILLAN MD Date of Service if different f: May 10, 2025 Common Visit Codes: 91304-TOT/OBS DISCH DAY >30min SABINE ADLER RESIDENT May 10, 2025 12:26
[2025-05-10 13:00] VITALS: BP 159/79; PULSE 79; RESP 18; TEMP 97.6; O2SAT 98
--- NOTE | 2025-05-10 13:04 | DVHSR ---
APPROVED REPORT EXAM: Two-dimensional and M-mode echocardiogram with Doppler and color Doppler. Blood Pressure: 167/74 mmHg INDICATION Dyspnea Heart Failure rule out chf RISK FACTORS Obesity: Height: 5'5, Weight: 174 DIMENSIONS LVDd 4.5 (3.8-5.7cm) LA (2D) 4.8 (1.9-4.0cm) Aortic Root 2.9 (2.0-3.7cm) LVDs 3.0 (2.5-4.0cm) LA (MM) (1.9-4.0cm) Aortic Cusp Exc 1.0 (1.5-2.0cm) EF (%) 60.0 (55-70%) Rt. Atrium 3.3 (1.9-4.0cm) Asc. Aorta 3.3 cm IVSd 1.2 (0.7-1.1cm) RV (D) (1.8-2.4cm) PWd 1.2 (0.7-1.1cm) Mitral Valve Mitral Mitral Stenosis E wave 1.09m/s MV Mean GR. 4mmHg A wave 1.20m/s MV Peak GR. 70mmHg E/A ratio 0.9 2D MVA cm2 DECEL Time 192ms PRESS 1/2 Time ms Aortic Valve Aortic Valve Aortic Stenosis V1 0.92m/s AO Mean GR. 14mmHg V2 2.46m/s AO Peak GR. 24mmHg LVOT Diameter 1.9 (1.8-2.4cm) Doppler ABEBA 1.06cm2 Pulmonic Valve V2 1.08m/s Tricuspid Valve TR Velocity 2.84m/s RVSP 44mmHg Other Information Quality : Technically Limited Rhythm : Technically limited study due to body habitus. Conclusion LVEF is normal at 55- 60%, mild to moderate left ventricular hypertrophy. Moderate diastolic dysfunction Right ventricle size and function normal Left atrium moderately dilated Aortic valve not well visualized appears moderately calcified. [id number] aortic stenosis Moderate pulmonary hypertension, RSVP 50-55 mmgh
[2025-05-10] MEDS ORDERED: LACT10SO3 PO (13:07)
[2025-05-10] MEDS ORDERED: DOCU-94 PO (13:07)
[2025-05-10] MEDS ORDERED: SPIR25TA8 PO (13:08)
[2025-05-10] MEDS ORDERED: FURO1TAB33 PO (13:08)
[2025-05-10] MEDS ORDERED: SUCR1TAB31 PO (13:09)
[2025-05-10] MEDS ORDERED: PANT40T PO (13:09)
[2025-05-10 13:29] VITALS: BP 150/89; PULSE 69; RESP 18; TEMP 98.4; O2SAT 95
[2025-05-10] MEDS ORDERED: FER325T PO (13:47)
[2025-05-10 16:35] VITALS: BP 143/73; PULSE 86; RESP 16; TEMP 97; O2SAT 96
== END 2025-05-10 16:30 | disposition home or self-care (01) | DRG 392 ==
LOC: ER 09:17 → OVERFLOW 13:43 → WEST WING 05-09 18:49
PROVIDERS: ADMIT Internal Medicine Geriatric Medicine; ATTEND Internal Medicine Geriatric Medicine
DX: K29.70 Gastritis, unspecified, without bleeding (principal); D61.818 Other pancytopenia; D69.6 Thrombocytopenia, unspecified; R18.8 Other ascites; D50.9 Iron deficiency anemia, unspecified; E11.9 Type 2 diabetes mellitus without complications; K76.6 Portal hypertension; I10 Essential (primary) hypertension; D73.1 Hypersplenism; K75.81 Nonalcoholic steatohepatitis (NASH); E87.70 Fluid overload, unspecified; K21.9 Gastro-esophageal reflux disease without esophagitis; K74.60 Unspecified cirrhosis of liver; K59.00 Constipation, unspecified; E87.6 Hypokalemia; E55.9 Vitamin D deficiency, unspecified; Z90.49 Acquired absence of other specified parts of digestive tract; Z98.891 History of uterine scar from previous surgery; Z79.899 Other long term (current) drug therapy; Z86.19 Personal history of other infectious and parasitic diseases
CPT/HCPCS: 36415; 74176; 80048; 80053; 80061; 80076; 81001; 82140; 82270; 82306; 82607; 82728; 82962; 83036; 83540; 83550; 83690; 83735; 83880; 84100; 84132; 84443; 84484; 85025; 85610; 85730; 86038; 86704; 86706; 86708; 86803; 87340; 93005; 93306; 99291; G0378; J1756; J1815; J1885